=== PATIENT | male | born 1955 | race Caucasian/White ===

== ENCOUNTER → 2022-02-03 | Outpatient (CLI) | payer MEDICARE ==
--- NOTE | 2022-02-03 12:00 | XR ---
Right foot HISTORY: Trauma and pain 3 views of the right foot Bone mineralization, joint spaces and alignment are maintained. Soft tissue swelling is present. Late ral exam not optimally positioned and somewhat limited. Calcification present at the insertion of the Achilles tendon. IMPRESSION: No fracture or dislocation is evident with limitations as described, follow-up as indicat ed.
== END | disposition home or self-care (01) ==
LOC: RADXRYALE 09:52
PROVIDERS: ATTEND Family Medicine
DX: S90.31XA Contusion of right foot, initial encounter (principal); X58.XXXA Exposure to other specified factors, initial encounter

== ENCOUNTER → 2023-02-23 | Outpatient (CLI) | payer MEDICARE ==
--- NOTE | 2023-02-23 10:11 | XR ---
EXAMINATION TYPE: XR chest 2V DATE OF EXAM: 02/23/2023 COMPARISON: NONE TECHNIQUE: PA and lateral views submitted. HISTORY: Cough FINDINGS: The lungs are clear and there is no pneumothorax, pleural effusion, or focal pneumonia. Heart size normal and no overt failure. Osseous structures demonstrate hypertrophic and degenerative changes of the spine. A calcified granuloma right lung. Prominent pulmonary arteries can be associated with pulm onary arterial hypertension. Calcified lymph nodes noted in the hilum. Ectasia the aorta. AC joint ar thropathy. IMPRESSION: 1. No acute process. Chronic granulomatous disease.
== END | disposition home or self-care (01) ==
LOC: RADXRYALE 09:40
PROVIDERS: ATTEND Family Medicine
DX: J84.10 Pulmonary fibrosis, unspecified (principal); F17.210 Nicotine dependence, cigarettes, uncomplicated
CPT/HCPCS: 71046

== ENCOUNTER → 2023-03-17 | Outpatient (CLI) | payer MEDICARE ==
--- NOTE | 2023-03-17 09:58 | US ---
EXAMINATION TYPE: US Aorta Screening DATE OF EXAM: 03/17/2023 COMPARISON: NONE CLINICAL INDICATION: Male, 67 years old with history of F17.210 NICOTINE DEPENDENCE, CIGARETTES, UNCO MPLIC,I10; AAA screening TECHNIQUE: Multiple sonographic images of the abdominal aorta are obtained. 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 Mild ectasia of the abdominal aorta up to 2.7 cm.
== END | disposition home or self-care (01) ==
LOC: RADUSWWP 07:14
PROVIDERS: ATTEND Family Medicine
DX: Z13.6 Encounter for screening for cardiovascular disorders (principal); F17.210 Nicotine dependence, cigarettes, uncomplicated; I10 Essential (primary) hypertension; E11.65 Type 2 diabetes mellitus with hyperglycemia; I77.811 Abdominal aortic ectasia
CPT/HCPCS: 76706

== ENCOUNTER → 2023-03-17 | Outpatient (CLI) | payer MEDICARE ==
--- NOTE | 2023-03-17 09:12 | CTL ---
EXAMINATION TYPE: CT Low Dose Lung DATE OF EXAM ORDERED: 03/17/2023 COMPARISON: None HISTORY: . Low Dose CT Lung Screening CT DLP: 2.[address] CTDI: 99.10 mGy IV CONTRAST USED: None. SCREENING VISIT: First visit COMPARISON: None. TECHNIQUE: Low dose computed tomography scan was performed through the chest at 1 millimeter thick se ctions and reconstructed images in the coronal plane at [address] DIAGNOSTIC QUALITY: Satisfactory FINDINGS: LUNG NODULES: Calcified granuloma right lower lobe. No noncalcified nodules present. LUNGS: COPD: Severity: Mild Fibrosis: Severity:None Lymph nodes: None Other findings: None RIGHT PLEURAL SPACE: Effusion: None Calcification: None Thickening: None Pneumothorax: None LEFT PLEURAL SPACE: Effusion: None Calcification: None Thickening: None Pneumothorax: None HEART: Heart Size: Mildly enlarged Coronary calcification: Mild Pericardial effusion: None OTHER FINDINGS: Upper abdomen: Splenic granulomas noted. Bony thorax: Degenerative changes Supraclavicular region: No significant abnormalityOther: No significant abnormalityI Calcified hilar and mediastinal lymph nodes. IMPRESSION: Evidence of remote granulomatous disease. FOLLOW UP CT CHEST RECOMMENDATION: Follow-up screening in one year CT LUNG RAD: LUNG RAD CATEGORY 2 benign appearance and/or behavior
== END | disposition home or self-care (01) ==
LOC: RADCTMAIN 08:06
PROVIDERS: ATTEND Family Medicine
DX: Z12.2 Encounter for screening for malignant neoplasm of respiratory organs (principal); J98.4 Other disorders of lung; F17.210 Nicotine dependence, cigarettes, uncomplicated; R05.3 Chronic cough
CPT/HCPCS: 71271

== ENCOUNTER 2023-09-22 07:39 | Day surgery (SDC) | payer MEDICARE ==
[2023-09-18 15:57] VITALS: BMI 31.6
[2023-09-22] MEDS ORDERED: LIDOCAINE 1% (10MG/ML) FOR IV START INTRADERMA PRN (07:49)
[2023-09-22] MEDS: LACTATED RINGERS 1,000 ML IV SCH (08:17)
[2023-09-22] MEDS: IV FLUID CONTINUATION 1,000 ML IV ONE (08:18)
[2023-09-22 08:20] VITALS: TEMP 97.8
[2023-09-22 08:23] LABS: Glucose,Whole Blood 126 mg/dL (70-110)
[2023-09-22] MEDS ORDERED: PROPOFOL 10 MG/ML 20 ML VIAL IV ONE (08:42)
[2023-09-22] MEDS ORDERED: LIDOCAINE 1% INJ 10MG/ML (20 ML MDV) ONE (08:42)
--- NOTE | 2023-09-22 09:20 | P.PCN ---
Date of Procedure: 09/22/23 Procedure(s) Performed: Brief history: Patient is a pleasant 68-year-old white male scheduled for an elective upper endoscopy as well as colonoscopy as a part of evaluation of iron deficiency anemia and positive Cologuard. He denies any GI symptoms. Procedure performed: Esophagogastroduodenoscopy with biopsy Colonoscopy snare polypectomy and Endo Clip placement Preoperative diagnosis: Iron deficiency anemia Positive Cologuard Anesthesia: MAC Procedure: After informed consent was obtained from the patient was brought into the endoscopy unit and IV sedation was administered by anesthesia under continuous monitoring. Initially upper endoscopy was done. The Olympus GF 160 video endoscope was inserted inserted into the mouth and esophagus intubated without any difficulty and was gradually advanced into the stomach and duodenum and carefully examined. The bulb and second part of the duodenum appeared normal. Biopsies were done from the duodenum to rule out celiac disease. The scope was then withdrawn into the stomach adequately insufflated with air and upon careful examination the antrum had multiple scattered erosions consistent with gastritis and biopsies were done from this area. Mucosa of the body, cardia and fundus appeared normal. The scope was then withdrawn into the esophagus. The GE junction was located at 40 cm to the incisors. It appeared regular with no erythema erosions or ulcerations. Rest of the esophagus appeared normal. Patient tolerated the procedure well. At this time the patient continued to remain sedation. Initial digital rectal examination was normal. Olympus CF 160 video colonoscope was then inserted into the rectum and gradually advanced to the cecum without any difficulty. Careful examination was performed as the scope was gradually being withdrawn. The prep was excellent. The cecum, had a 5 mm cecal polyp status post cold snare po lypectomy. In the ascending colon there was a 4 cm broad-based polyp that was removed by piecemeal snare polypectomy and almost complete polypectomy was accomplished. Adjacent to this area there was a 2 cm linear polyp that was also removed by piecemeal snare polypectomy. Tattooing was performed with Bambi ink. Rest of the ascending colon, transverse colon, descending colon, sigmoid colon and rectum appeared normal. Retroflexion was performed in the rectum and no lesions were noted. Patient tolerated the procedure well. Impression: 1. Upper endoscopy revealed antral erosive gastritis but no evidence of esophagitis or peptic ulcer disease 2. Colonoscopy revealed: a) 5 mm cecal polyp status post cold snare polypectomy b) 2 cm linear polyp and a 4 cm broad-based polyp in the ascending colon s/p piecemeal snare polypectomy followed by Endo Clip placement and almost complete polypectomy accomplished Recommendations: Findings of this examination were discussed with the patient as well as his family. He was advised to follow-up with the biopsy results. He will be seen in the office in 2 weeks. The biopsy reveals adenoma, recommend repeat colonoscopy in 3 months to ensure complete polypectomy
[2023-09-22 09:25] VITALS: RESP 16
[2023-09-22 09:41] VITALS: BP 107/67; PULSE 80
== END 2023-09-22 10:01 | disposition home or self-care (01) ==
LOC: ORWHC2ENDO 07:39
PROVIDERS: ATTEND Internal Medicine Gastroenterology
DX: D12.2 Benign neoplasm of ascending colon (principal); D12.0 Benign neoplasm of cecum; D50.9 Iron deficiency anemia, unspecified; K29.60 Other gastritis without bleeding; I10 Essential (primary) hypertension; E78.5 Hyperlipidemia, unspecified; E11.9 Type 2 diabetes mellitus without complications; F41.9 Anxiety disorder, unspecified; H91.90 Unspecified hearing loss, unspecified ear; F17.200 Nicotine dependence, unspecified, uncomplicated; Z79.84 Long term (current) use of oral hypoglycemic drugs; Z79.899 Other long term (current) drug therapy
CPT/HCPCS: 88305; 45385; 43239; 44404; J2001; J2704

== ENCOUNTER → 2023-10-13 | Outpatient (CLI) | payer MEDICARE ==
[2023-10-13 08:08] LABS: African American GFR (CKD) 54 (>60 ml/min/1.73 sqM); Blood Urea Nitrogen 46 mg/dL (9-20); Non-African American GFR(CKD) 47 (>60 ml/min/1.73 sqM)
--- NOTE | 2023-10-13 11:05 | CT ---
EXAMINATION TYPE: CT abdomen pelvis w con CT DLP: 967.6 mGycm, Automated exposure control for dose reduction was used. DATE OF EXAM: 10/13/2023 9:15 AM COMPARISON: None. CLINICAL INDICATION:Male, 68 years old with history of R63.4 ABN WEIGHT LOSS; abn weight loss, ulcer TECHNIQUE: Axial CT abdomen pelvis w con;Sagittal and coronal reformats were created on a separate w orkstation. Contrast used:80 mL of Isovue 300 with IV Contrast, (none if empty) Oral contrast used: with Oral Contrast (none if empty) FINDINGS: LOWER CHEST: Unremarkable ABDOMEN LIVER: Multiple subcentimeter hypoattenuating structures are demonstrated throughout the liver, which are too small to accurately characterize but statistically likely to represent simple hepatic cysts. Scattered calcified granulomas. GALLBLADDER AND BILE DUCTS: Calcified gallstone near the gallbladder neck. PANCREAS: Unremarkable. SPLEEN: Scattered calcified granulomas. ADRENAL GLANDS: Unremarkable. KIDNEYS AND URETERS: Right renal mass superiorly measuring 6.3 x 5.6 x 5.3 cm which is minimally exop hytic. There is a indeterminate renal lesion more inferiorly and laterally measuring 56 until units a nd 17 mm. No evidence for suspicious left renal mass. No obstructive uropathy or renal calculus visua lized. No venous extension within the visualized. PELVIS BLADDER: Unremarkable REPRODUCTIVE: Prostate is enlarged in size measuring 5.7 cm in transverse dimension. ABDOMEN & PELVIS STOMACH AND BOWEL: No evidence of bowel obstruction. PERITONEUM/RETROPERITONEUM: No evidence of pneumoperitoneum or free fluid. VASCULATURE: Right common iliac artery aneurysm measuring up to 22 mm with mural thrombus. Scattered atherosclerosis throughout the remainder of the arterial vasculature. MUSCULOSKELETAL: No acute osseous abnormalities. Moderate disc degeneration changes are present throu ghout the thoracolumbar spine. Retrolisthesis of L5 on S1 with moderate to severe bilateral neural fo raminal stenosis. LYMPH NODES: enlarged right perirenal lymph node measuring up to 21 mm in short axis. SOFT TISSUE/ABDOMINAL WALL: Fat-containing umbilical hernia. IMPRESSION: 1. Right renal mass most compatible with renal cell carcinoma likely clear cell subtype with suspect ed metastatic disease to an adjacent lymph node. 2. Indeterminate right inferior lateral renal lesion measuring 17 mm. This can be further characteri zed with MRI renal mass protocol. 3. Prostatomegaly correlate with serum PSA. 4. Cholelithiasis with gallstone in the gallbladder lumen. 5. Right common iliac artery aneurysm measuring up to 22 mm with mural thrombus. A [place] level critical message alert has been initiated for Amita Wolfe MD via the [employer] Critical Results System on 10/13/2023 11:03 AM. This message alert has been sent to Amita Wolfe MD via the preferences provided by the clinician for the receipt of Radiology Critical Findings. Mess age ID [id number].
== END | disposition home or self-care (01) ==
LOC: RADCTMAIN 07:12
PROVIDERS: ATTEND Internal Medicine Gastroenterology
DX: N28.89 Other specified disorders of kidney and ureter (principal); K80.20 Calculus of gallbladder without cholecystitis without obstruction; N40.0 Benign prostatic hyperplasia without lower urinary tract symptoms; I72.3 Aneurysm of iliac artery; R63.4 Abnormal weight loss
CPT/HCPCS: 82565; 84520; 74177; 36415; Q9967

== ENCOUNTER → 2023-10-23 | Outpatient (CLI) | payer MEDICARE | END | disposition home or self-care (01) | LOC: RADCTMAIN 14:11 | PROVIDERS: ATTEND Urology | DX: Z53.9 Procedure and treatment not carried out, unspecified reason (principal) ==

== ENCOUNTER → 2023-10-28 | Outpatient (CLI) | payer MEDICARE ==
[2023-10-28 09:34] LABS: African American GFR (CKD) 43 (>60 ml/min/1.73 sqM); Blood Urea Nitrogen 45 mg/dL (9-20); Non-African American GFR(CKD) 37 (>60 ml/min/1.73 sqM)
--- NOTE | 2023-10-28 10:27 | CT ---
EXAMINATION TYPE: CT chest w con CT DLP: 375.7 mGycm, Automated exposure control for dose reduction was used. DATE OF EXAM: 10/28/2023 10:10 AM COMPARISON: CT low-dose lung at 03/17/2023, CT abdomen pelvis 10/13/2023. CLINICAL INDICATION:Male, 68 years old with history of C64.1 RENAL CA; PHH, renal ca TECHNIQUE: Multiple axial images were obtained through the chest following the administration of 100 cc of Isovue 300. . Coronal and sagittal reformats reviewed. FINDINGS: LUNGS/ PLEURA: No pleural effusion, pneumothorax, focal consolidation. Stable medial right upper lobe 4.8 mm pulmonary nodule (series 4, image 14). Stable 6 mm nodule along the right minor fissure (seri es 4, image 32). Likely intrafissural lymph node. Stable right lower lobe 1.2 cm calcified granuloma. No new or enlarging pulmonary nodules. AIRWAY: Patent and unremarkable.. HEART: Size within normal limits. No pericardial effusion. MEDIASTINUM: No enlarged lymph nodes greater than 1 cm short axis. Right hilar calcified lymph nodes. VASCULATURE: No thoracic aortic aneurysm. Mild atherosclerotic calcification of the aorta and its br anches. Mural thrombus identified along the descending thoracic aorta. Aneurysmal dilatation of the a jerson at the aortic hiatus measuring up to 3.7 cm again (series 3, image 62). Additional mural thrombu s identified within the visualized infrarenal abdominal aorta. MUSCULOSKELETAL: No acute osseous abnormalities. Mild multilevel degenerative disc disease. No aggres sive osseous lesion. SOFT TISSUES/LYMPH NODES: Unremarkable. LOWER NECK: No significant findings. UPPER ABDOMEN: Multiple calcified granulomas identified within the liver and spleen. Stable right hep atic lobe 1.2 cm cyst . Cholelithiasis. Increased size of partially visualized heterogenous enhancing right renal mass measuring 7.1 cm in AP dimension, previously 5.4 cm. Stable enlarged enhancing righ t pararenal lymph node measuring up to 2.0 cm. Similar thickening of the left adrenal gland. IMPRESSION: 1. Stable few pulmonary nodules from prior CT 03/17/2023. Attention on follow-up exam. No lymphadenop athy within the chest. 2. Increased size of partially visualized heterogenous enhancing right renal mass most consistent wit h renal cell carcinoma. 3. Stable enlarged right pararenal lymph node highly suspicious for metastasis. Similar nonspecific t hickening of the left adrenal gland. Cannot exclude metastasis. 4. Sequelae of prior granulomatous disease. 5. Similar aneurysmal dilatation of the aorta at the aortic hiatus measuring up to 3.7 cm. 6. Cholelithiasis.
[2023-10-28 11:03] LABS: ALT 32 U/L (4-49); AST 28 U/L (17-59); African American GFR (CKD) 46 (>60 ml/min/1.73 sqM); Albumin 3.2 g/dL (3.5-5.0); Albumin/Globulin Ratio 0.9; Alkaline Phosphatase 158 U/L (38-126); Anion Gap 7 mmol/L; Blood Urea Nitrogen 45 mg/dL (9-20); Carbon Dioxide 27 mmol/L (22-30); Chloride 100 mmol/L (98-107); Globulin 3.4 g/dL; Glucose 196 mg/dL (74-99); Non-African American GFR(CKD) 40 (>60 ml/min/1.73 sqM); Potassium 4.5 mmol/L (3.5-5.1); Sodium 134 mmol/L (137-145); Total Bilirubin 0.5 mg/dL (0.2-1.3); Total Protein 6.6 g/dL (6.3-8.2)
== END | disposition home or self-care (01) ==
LOC: RADCTMAIN 08:58
PROVIDERS: ATTEND Urology
DX: C64.1 Malignant neoplasm of right kidney, except renal pelvis (principal); N28.89 Other specified disorders of kidney and ureter; K80.20 Calculus of gallbladder without cholecystitis without obstruction; R59.9 Enlarged lymph nodes, unspecified; D71 Functional disorders of polymorphonuclear neutrophils; I71.9 Aortic aneurysm of unspecified site, without rupture
CPT/HCPCS: 80053; 82565; 84520; 71260; 36415; Q9967

== ENCOUNTER 2023-11-19 05:37 | Inpatient (IN) | payer MEDICARE ==
[2023-11-18 11:01] VITALS: BMI 30.4
--- NOTE | 2023-11-18 22:07 | P.GSHP ---
History of Present Illness H&P Date: 11/18/23 Chief Complaint: Right renal mass The patient is a 68-year-old white male who underwent evaluation of symptoms including fatigue, loss of appetite, and epigastric pain. CT scan of the abdomen and pelvis performed on October 13, 2023 showed a 6.3 x 5.6 x 5.3 cm right upper pole renal mass with a 21 mm lymph node posterior to the inferior vena cava. Patient has a long history of a pulmonary nodule on chest x-ray. CT scan of the chest performed October 28, 2023 showed stable pulmonary nodules, unchanged compared to CT scan in February 2023. The right renal mass measured 7.1 cm in maximal diameter on that scan. - Constitutional Constitutional: Reports fatigue, Reports weight loss - Gastrointestinal Gastrointestinal: Reports abdominal pain - Genitourinary (Female) Genitourinary: Denies dysuria, Denies hematuria Past Medical History Past Medical History: Cancer, Diabetes Mellitus, Hearing Disorder / Deafness, Hyperlipidemia, Hypertension Additional Past Medical History / Comment(s): Current right renal cancer. Spouse states since diagnosis patient cannot taste anything, having more pronounced fatigue, constipation, mid back pain after standing for only 7-10min - progressively getting worse, stumbbling at times, low blood pressure, calling PCP to discuss blood pressure and blood pressure medication. Wheezing sometimes, SOB with exertion, fatigue, low iron, recent 15lbs weight loss, loss of appetite, not eating much, difficulty swallowing, recent Cologuard positive, hard of hearing, brain fog, "stares off into space sometimes". History of Any Multi-Drug Resistant Organisms: None Reported Past Surgical History: No Surgical Hx Reported, Prostate Surgery Additional Past Surgical History / Comment(s): Colonoscopy with polypectomy, EGD. Past Anesthesia/Blood Transfusion Reactions: No Reported Reaction Additional Past Anesthesia/Blood Transfusion Reaction / Comment(s): Has never had Anesthesia. Smoking Status: Current every day smoker - Past Family History Mother Family Medical History: No Reported History Medications and Allergies Home Medications Medication Instructions Recorded Confirmed Type Atorvastatin [Lipitor] 40 mg PO DAILY 09/18/23 11/18/23 History Losartan/Hydrochlorothiazide 1 tab PO DAILY 09/18/23 11/18/23 History [Losartan-Hctz 100-25 mg Tab] metFORMIN HCL 500 mg PO BID 09/18/23 11/18/23 History Omeprazole 20 mg PO -BRKFST 11/18/23 11/18/23 History Allergies Allergy/AdvReac Type Severity Reaction Status Date / Time No Known Allergies Allergy Verified 11/18/23 10:49 Surgical - Exam - General well developed, well nourished, no distress - Neck no masses, trachea midline - Respiratory normal respiratory effort - Abdomen Abdomen: soft, non tender, no guarding, no rigid, no rebound - Genitourinary normal penis with no external lesions, testicles non-tender - Psychiatric oriented to time, oriented to person, oriented to place, speech is normal, memory intact Results - Imaging CT scan - abdomen: report reviewed, image reviewed Assessment and Plan (1) Neoplasm of uncertain behavior of right kidney Status: Acute Code(s): D41.01 - NEOPLASM OF UNCERTAIN BEHAVIOR OF RIGHT KIDNEY SNOMED Code(s): 261503201288619 Plan: Right radical nephrectomy with regional lymphadenectomy. The procedure has been reviewed in detail with the patient and his . They have been made aware of potential risks, which include anesthesia, bleeding, infection, bowel injury, hepatic injury, postoperative chylous ascites, postoperative paralytic ileus, and wound related complications.
[2023-11-19] MEDS: IV FLUID CONTINUATION 1,000 ML IV ONE ×3 (06:21)
[2023-11-19 06:47] LABS: Glucose,Whole Blood 195 mg/dL (70-110)
[2023-11-19] MEDS ORDERED: HYDROmorphone 0.5 MG/0.5 ML SYRINGE IVP PRN (07:00)
[2023-11-19] MEDS: DEXAMETHASONE SOD PHOSPHATE 4 MG/ML 1 ML VIAL IV ONE (07:03)
[2023-11-19] MEDS: ONDANSETRON 4 MG/2 ML VIAL IVP ONE (07:03)
[2023-11-19] MEDS: LACTATED RINGERS 1,000 ML IV SCH (07:04)
[2023-11-19 07:06] LABS: Anisocytosis Slight; Basophils # (A) 0.1 k/uL (0-0.2); Basophils % (A) 1 %; Eosinophils # (A) 0.1 k/uL (0-0.7); Eosinophils % (A) 1 %; HCT 27.3 % (39.0-53.0); HGB 8.6 gm/dL (13.0-17.5); Hypochromasia Moderate; Lymphocytes # (A) 1.5 k/uL (1.0-4.8); Lymphocytes % (A) 15 %; MCHC 31.7 g/dL (31.0-37.0); Mean Platelet Volume 8.5; Microcytosis Slight; Monocytes # (A) 0.8 k/uL (0-1.0); Monocytes % (A) 8 %; Neutrophils # (A) 7.4 k/uL (1.3-7.7); Neutrophils % (A) 74 %; Platelet Count 349 k/uL (150-450); RBC 3.45 m/uL (4.30-5.90); RDW 16.1 % (11.5-15.5)
[2023-11-19] MEDS: MIDAZOLAM 2 MG/2 ML VIAL IV ONE (07:13)
[2023-11-19 07:21] LABS: African American GFR (CKD) 45 (>60 ml/min/1.73 sqM); Anion Gap 9 mmol/L; Blood Urea Nitrogen 41 mg/dL (9-20); Calcium 10.1 mg/dL (8.4-10.2); Carbon Dioxide 27 mmol/L (22-30); Chloride 101 mmol/L (98-107); Glucose 170 mg/dL (74-99); Non-African American GFR(CKD) 39 (>60 ml/min/1.73 sqM); Potassium 4.2 mmol/L (3.5-5.1); Sodium 137 mmol/L (137-145)
[2023-11-19] MEDS ORDERED: SUCCINYLCHOLINE CHLORIDE 200 MG/10 ML VIAL IV ONE (07:45)
[2023-11-19] MEDS ORDERED: LIDOCAINE 1% INJ 10MG/ML (20 ML MDV) ONE (07:45)
[2023-11-19] MEDS ORDERED: fentaNYL (PF) 50 MCG/ML 2 ML AMP ONE (07:45)
[2023-11-19] MEDS ORDERED: PROPOFOL 10 MG/ML 20 ML VIAL IV ONE (07:45)
[2023-11-19] MEDS ORDERED: PHENYLEPHRINE 10 MG/ML VIAL ONE (07:45)
[2023-11-19] MEDS ORDERED: GLYCOPYRROLATE 0.2 MG/ML 2 ML VIAL ONE (07:45)
[2023-11-19] MEDS ORDERED: NEOSTIGMINE 1 MG/ML 10 ML VIAL ONE (07:45)
[2023-11-19] MEDS ORDERED: ROCURONIUM 10 MG/ML (5 ML VIAL) IV ONE (07:45)
[2023-11-19] MEDS: LACTATED RINGERS 1,000 ML IV ONE ×3 (08:51→10:04)
[2023-11-19] MEDS ORDERED: NALOXONE 0.4 MG/ML 1 ML VIAL IV PRN (09:39)
[2023-11-19 10:32] LABS: Glucose,Whole Blood 236 mg/dL (70-110)
[2023-11-19] MEDS: ROPIVACAINE 250 MG, HYDROMORPHONE (PF) 5 MG in SODIUM CHLORIDE 0.9% 200 ML EPIDURAL PRN (10:46)
[2023-11-19] MEDS: INSULIN ASPART (NovoLOG) 100 UNIT/ML VIAL SQ ONE (12:05)
--- NOTE | 2023-11-19 12:15 | P.ANPRN ---
Procedure Note - Anesthesia - Epidural/Spinal Epidural Continuous Time Out Performed: Yes Date of Procedure: 11/19/23 Procedure Start Time: 07:12 Procedure Stop Time: 07:18 Location of Patient: PreOp Indication: Acute Post-Operative Pain, Requested by Surgeon Sedation Type: Sedate with meaningful contact maintained Preparation: Sterile Dressing Position: Sitting Catheter: Indwelling Needle Guage: 18 Blood Aspirated: No Pain Paresthesia on Injection Noted: No Events: Uneventful and Well Tolerated (Xylocaine 1.5% plus epi 3 cc given as a test dose no adverse reaction noted)
[2023-11-19] MEDS: SODIUM CHLORIDE 0.9% 1,000 ML IV SCH (14:01)
[2023-11-19] MEDS: INSULIN REGULAR 100 UNIT/ML VIAL (IM/SQ) SQ ONE (14:01)
[2023-11-19] MEDS: NICOTINE 14MG/24HR PATCH TRANSDERM SCH (14:13)
--- NOTE | 2023-11-19 14:21 | P.OP ---
Date of Procedure: 11/19/23 Preoperative Diagnosis: Right renal mass Postoperative Diagnosis: Same Procedure(s) Performed: Right radical nephrectomy with regional lymphadenectomy, extensive lysis of adhesions Anesthesia: NISAA, janae Surgeon: Jhonny Beaver Paperboard Machine Operator #1: Christian Lockwodo Estimated Blood Loss (ml): 75 IV fluids (ml): 1,400 Pathology: other (Right kidney, retrocaval lymph node) Condition: stable Disposition: PACU Indications for Procedure: The patient is a 68-year-old white male who underwent evaluation of symptoms including fatigue, loss of appetite, and epigastric pain. CT scan of the abdomen and pelvis performed on October 13, 2023 showed a 6.3 x 5.6 x 5.3 cm right upper pole renal mass with a 21 mm lymph node posterior to the inferior vena cava. Patient has a long history of a pulmonary nodule on chest x-ray. CT scan of the chest performed October 28, 2023 showed stable pulmonary nodules, unchanged compared to CT scan in February 2023. The right renal mass measured 7.1 cm in maximal diameter on that scan. He now comes for right radical nephrectomy with regional lymphadenectomy. Operative Findings: Right upper pole renal mass. Large lymph node located posterior to the IVC, removed intact. Significant right upper quadrant adhesions. Description of Procedure: The patient was taken to the operating room and placed in the supine position. After being given general anesthesia, the abdomen was prepped and draped sterilely. A right-sided chevron incision was made using the scalpel. The Bovie electrocautery was used to incise the subcutaneous tissues and muscular layers of the abdominal wall down to the peritoneum. The peritoneum was then carefully entered, and opened the full length of the incision. The abdomen was examined, and extensive right upper quadrant adhesions were noted. Specifically, the omentum was adherent to the liver and the anterior abdominal wall. Ink was noted adjacent to the colon at the hepatic flexure. Dr. Zavala was consulted and stated that this was consistent with intracolonic tattooing performed at the time of colonoscopy. The adhesions were carefully lysed using a combination of sharp and blunt dissection. Once the adhesions were taken down, the peritoneum was incised at the line of Toldt, and a Светлана maneuver was performed. This exposed the right kidney and the inferior vena cava. Dissection was then performed alongside the lateral aspect of the inferior vena cava inferiorly. The tail of Gerota's fascia was dissected off of the posterior abdominal wall, and the ureter was ligated and divided. The Bookwalter r etractor was then placed for exposure. Lymphoadipose tissue was clipped and divided just lateral to the IVC up to the renal hilum. There was no evidence of adenopathy. The right renal artery was noted to bifurcate. The artery was ligated just proximal to the bifurcation using a 2-0 silk tie. The right renal vein, which had been isolated, was ligated proximally and distally. A 2-0 silk suture ligature was also placed proximally, and the vein was then divided. Dissection was performed between the IVC and the right renal artery to gain medial exposure and allow for the right renal artery to be ligated twice proximally using 2-0 silk ties. The artery was then divided. The remaining hilar lymph oh adipose tissue was clipped and divided. The remaining hilar tissues were clipped and divided at this time. Once the hilar dissection had been completed, blunt dissection was used to dissect the kidney, with Gerota's fascia intact, off of the posterior body wall. Remaining lateral attachments were divided at this time. The only remaining attachments were superior, and these attachments were clipped and divided. The vast majority of the adrenal gland was removed, though the adrenal gland extended extremely high and a portion of it was left. Once all attachments were divided, the specimen was removed. Attention was then paid to the retrocaval lymph node, which was just cephalad to the renal vessels. The inferior vena cava was dissected posteriorly and mobilized off of the retrocaval node. It was then possible to excise the node intact. Surrounding attachments were clipped and divided. No other enlarged lymph nodes were encountered. The surgical field was examined for hemostasis, which was very good with only very minimal oozing noted from the adrenal edge. After irrigating the wound with warm sterile water, Surgicel was applied over the adrenal bed. The Bookwalter retractor was removed. The abdominal contents were allowed to return to their normal location. Each individual muscle layer of the anterior abdominal wall was closed using #1 Vicryl suture in a running fashion. Hemostasis within the subcutaneous tissues was excellent. The skin was closed using jake. A sterile gauze dressing was applied over the incision. All sponge and needle counts were correct. The patient tolerated the procedure well was taken to the recovery room in stable condition.
[2023-11-19 16:11] LABS: Glucose,Whole Blood 182 mg/dL (70-110)
[2023-11-19] MEDS: ONDANSETRON 4 MG/2 ML VIAL IVP PRN (18:05)
[2023-11-19] MEDS: HEPARIN SODIUM,PORCINE 5,000 UNIT/ML 1 ML VIAL SQ SCH (20:10)
[2023-11-19 20:11] LABS: Glucose,Whole Blood 155 mg/dL (70-110)
[2023-11-20 06:14] LABS: Glucose,Whole Blood 121 mg/dL (70-110)
[2023-11-20] MEDS: PANTOPRAZOLE 40 MG TABLET PO SCH (06:38)
[2023-11-20] MEDS: ATORVASTATIN 40 MG TAB PO SCH (08:02)
[2023-11-20] MEDS: LOSARTAN-HCTZ 50-12.5 MG 1 EACH TAB PO SCH (08:02)
[2023-11-20 08:40] LABS: HCT 25.9 % (39.6-50.0); HGB 7.6 g/dL (13.0-17.0); MCH 25.2 pg (27.0-32.0); MCHC 29.3 g/dL (32.0-37.0); MCV 85.8 FL (80.0-97.0); Mean Platelet Volume 10.5 FL (9.5-12.2); NRBC Per 100 WBC 0 X 10*3/uL (0.00-0.01); Platelet Count 307 X 10*3/uL (140-440); RBC 3.02 X 10*6/uL (4.40-5.60); RDW 16.4 % (11.5-14.5)
[2023-11-20 08:41] LABS: Basophils # (A) 0.02 X 10*3/uL (0.00-0.10); Basophils % (A) 0.2 %; Eosinophils # (A) 0.03 X 10*3/uL (0.04-0.35); Eosinophils % (A) 0.3 %; Lymphocytes # (A) 1.95 X 10*3/uL (0.90-5.00); Lymphocytes % (A) 21.7 %; Monocytes # (A) 0.67 X 10*3/uL (0.20-1.00); Monocytes % (A) 7.4 %; Neutrophils % (A) 70.1 %
[2023-11-20 08:48] LABS: Calcium 9.2 mg/dL (8.7-10.3); Carbon Dioxide 26.4 mmol/L (21.6-31.8); Chloride 100 mmol/L (96-109); Glucose 104 mg/dL (70-110); Potassium 4.5 mmol/L (3.5-5.5); Sodium 139 mmol/L (135-145)
[2023-11-20] MEDS: diphenhydrAMINE ELIXIR 25 MG/10 ML CUP PO PRN (10:12)
[2023-11-20 11:35] LABS: Glucose,Whole Blood 141 mg/dL (70-110)
--- NOTE | 2023-11-20 11:47 | P.PN ---
Progress Note - Text Progress Note Date: 11/20/23 Postoperative day #1 status post radical nephrectomy epidural catheter placed for postoperative analgesia, patient doing well epidural site okay, patient currently on combination of epidural infusion solution of Ropivacaine 0.0625% and Dilaudid 20 g per mL the infusion rate at 7 ml per hour , patient had no motor deficit epidural site okay , vital signs stable ,VAS 0 /10 , Assessment and plan= post operative day #1 patient doing well ,pain well controlled , there is no anesthesia related complications
[2023-11-20] MEDS ORDERED: ZINC OXIDE PASTE (Z-GUARD) 1 APPLIC TOPICAL PRN (16:25)
[2023-11-20 16:59] LABS: Glucose,Whole Blood 152 mg/dL (70-110)
--- NOTE | 2023-11-20 18:05 | P.PN ---
Progress Note - Text Progress Note Date: 11/20/23 Underwent right open nephrectomy yesterday, is having nausea which is improving this morning. And incisional pain which is anticipated. Creatinine is 2.2, making adequate urine output. His abdomen is soft with tenderness along the incision -Continue Zofran for nausea -Will keep Teran and epidural in place for now
[2023-11-20 21:12] LABS: Glucose,Whole Blood 190 mg/dL (70-110)
[2023-11-21 06:19] LABS: Glucose,Whole Blood 131 mg/dL (70-110)
[2023-11-21 11:33] LABS: Glucose,Whole Blood 149 mg/dL (70-110)
--- NOTE | 2023-11-21 13:04 | P.PN ---
Subjective Progress Note Date: 11/21/23 the patient is in his second postoperative day from a right radical nephrectomy. He is doing well. His pain is under control. He is feeling well. His vital signs are stable urine output is good. Objective - Vital Signs Vital signs: Vital Signs Temp 98.8 F 11/21/23 06:56 Pulse 85 11/21/23 06:56 Resp 20 11/21/23 06:56 BP 102/61 11/21/23 06:56 Pulse Ox 96 11/21/23 08:59 FiO2 Intake & Output 11/20/23 11/21/23 11/21/23 18:59 06:59 18:59 Intake Total 185.267 Output Total 750 950 Balance -750 -877.753 Intake: Intake, IV Titration 185.267 Amount Ropivacaine 250 mg 185.267 Hydromorphone (Pf) 5 mg In Sodium Chloride 0.9% 200 ml @ Per Protocol EPIDURAL .Q0M PRN Rx#: [id number] Output: Urine 750 950 Other: Voiding Method Indwelling Catheter Indwelling Catheter - Genitourinary Genitourinary Comment(s): wound looks good without evidence of infection. - Labs CBC & Chem 7: 11/20/23 05:20 11/20/23 05:20 Labs: Abnormal Lab Results - Last 24 Hours (Table) 11/20/23 11/20/23 11/21/23 Range/Units 16:57 21:10 06:18 POC Glucose (mg/dL) 152 H 190 H 131 H (70-110) mg/dL 11/21/23 Range/Units 11:31 POC Glucose (mg/dL) 149 H (70-110) mg/dL Assessment and Plan Assessment: impression: Second day postoperative right radical nephrectomy. Recommendations: Discontinue epidural, discontinue Teran. Oral pain medicines. Ambulate.
[2023-11-21] MEDS: HYDROcodone/APAP 5-325MG 1 EACH TAB PO PRN (14:31)
[2023-11-21 16:40] LABS: Glucose,Whole Blood 159 mg/dL (70-110)
[2023-11-21 20:35] LABS: Glucose,Whole Blood 198 mg/dL (70-110)
[2023-11-22 05:59] LABS: Glucose,Whole Blood 112 mg/dL (70-110)
[2023-11-22 08:02] VITALS: BP 146/74; PULSE 74; RESP 20; TEMP 98.2
--- NOTE | 2023-11-22 11:22 | P.DS ---
Providers Date of admission: 11/19/23 05:37 Attending physician: Jhonny Beaver Primary care physician: Clara [facility] Hospital Course: the patient was admitted 11/19/23 for right radical nephrectomy. He underwent this without problems. He is recuperating nicely. He is now voiding, his pain is under control. He is eating a regular diet and ambulating. He is ready for discharge home. His wound is normal. There is no evidence of infection. He'll be discharged home on regular diet. He'll resume his home medications. He can follow in the office in one week for staple removal. He'll take Tylenol or Motrin for pain. The pathology report is pending. Patient Condition at Discharge: Good Plan - Discharge Summary Discharge Rx Participant: Yes New Discharge Prescriptions: No Action Atorvastatin [Lipitor] 40 mg PO DAILY RX: metFORMIN HCL 500 mg PO BID Losartan/Hydrochlorothiazide [Losartan-Hctz 100-25 mg Tab] 1 tab PO DAILY RX: Omeprazole 20 mg PO AC-BRKFST Discharge Medication List Atorvastatin [Lipitor] 40 mg PO DAILY 09/18/23 [History] Losartan/Hydrochlorothiazide [Losartan-Hctz 100-25 mg Tab] 1 tab PO DAILY 09/18/23 [History] RX: metFORMIN HCL 500 mg PO BID 09/18/23 [History] RX: Omeprazole 20 mg PO AC-BRKFST 11/18/23 [History] Follow up Appointment(s)/Referral(s): Jhonny Beaver MD [STAFF PHYSICIAN] - 1 Week Activity/Diet/Wound Care/Special Instructions: , may shower, Tylenol or Motrin for pain Discharge Disposition: HOME SELF-CARE
[2023-11-22 11:24] LABS: Glucose,Whole Blood 182 mg/dL (70-110)
--- NOTE | 2023-11-22 20:48 | P.PN ---
Progress Note - Text 11/21/23 1985 68-year-old male status post nephrectomy. Patient had an epidural catheter which was DC'd as per the surgeon's request. Patient seen and evaluated, doing well with his pain score of 4.
== END 2023-11-22 12:47 | disposition home or self-care (01) | DRG 661 ==
LOC: 2ORMAIN 05:37 → EDSTATUS 07:30 → 4SSUR 12:40
PROVIDERS: ADMIT Urology; ATTEND Urology
PROC: 0GT30ZZ Resection of Right Adrenal Gland, Open Approach (ICD-10-PCS; 2023-11-19)
PROC: 07BC0ZX Excision of Pelvis Lymphatic, Open Approach, Diagnostic (ICD-10-PCS; 2023-11-19)
PROC: 0TT00ZZ Resection of Right Kidney, Open Approach (ICD-10-PCS; principal; 2023-11-19 07:30)
DX: N28.89 Other specified disorders of kidney and ureter (principal); E11.9 Type 2 diabetes mellitus without complications; E78.5 Hyperlipidemia, unspecified; I10 Essential (primary) hypertension; H91.90 Unspecified hearing loss, unspecified ear; F17.210 Nicotine dependence, cigarettes, uncomplicated; Z79.899 Other long term (current) drug therapy; Z79.84 Long term (current) use of oral hypoglycemic drugs; Z87.19 Personal history of other diseases of the digestive system
CPT/HCPCS: 80048; 85025; 86850; 86900; 86901; 88305; 88307; 94760

== ENCOUNTER → 2024-06-24 | Outpatient (CLI) | payer MEDICARE ==
--- NOTE | 2024-06-24 14:26 | CT ---
EXAMINATION TYPE: CT abdomen pelvis wo con CT DLP: 881 mGycm, Automated exposure control for dose reduction was used. DATE OF EXAM: 06/24/2024 11:07 AM COMPARISON: CT chest 10/28/2023, CT abdomen and pelvis 10/13/2023. CLINICAL INDICATION:Male, 68 years old with history of C64.1 MALIGNANT NEOPLASM OF RIGHT KIDNEY, EXCE PT R; Malignant neoplasm of right kidney TECHNIQUE: Standard CT of the abdomen and pelvis following the administration of oral contrast. Cor onal and sagittal reformats were performed. FINDINGS: Evaluation is limited due to lack of intravenous contrast. LOWER CHEST: Partial visualization of a nodular opacity within the right lower lobe measuring at leas t 7 mm which corresponds to previously seen calcified granuloma. Additional small right lower lobe ca lcified granuloma. No new versus pulmonary nodules. Small aortic valvular calcifications. ABDOMEN LIVER: Scattered punctate calcified granulomas. GALLBLADDER AND BILE DUCTS: Cholelithiasis. No biliary ductal dilatation. PANCREAS: Unremarkable noncontrast appearance. SPLEEN: Scattered calcified granulomas. ADRENAL GLANDS: Similar nonspecific thickening of the left gland. Possibly hyperplasia. Right adrenal gland is surgically absent. KIDNEYS AND URETERS: Postsurgical changes right nephrectomy. No suspicious soft tissue within the ekaterina gical bed. No left hydronephrosis or renal calculi. PELVIS BLADDER: Unremarkable REPRODUCTIVE: Prostate is enlarged in size measuring 6.0 cm in transverse dimension. ABDOMEN & PELVIS STOMACH AND BOWEL: The stomach appears unremarkable. Stable 1.1 cm fat-containing lipoma within the t hird portion of the duodenum.No focal bowel wall thickening or surrounding inflammatory changes. Ente alanis contrast reaches the proximal transverse colon. The appendix is within normal limits. No evidence of bowel obstruction. PERITONEUM: No evidence of pneumoperitoneum or free fluid. VASCULATURE: Mild atherosclerotic calcifications are present throughout the abdominal aorta and its b ranches. Stable infrarenal abdominal aortic aneurysm measuring up to 3.1 cm. Stable fusiform aneurysm al dilatation of the right common iliac artery measuring up to 2.3 cm. MUSCULOSKELETAL: No acute osseous abnormalities. No aggressive osseous lesion. Mild retrolisthesis of L5 on S1. Mild multilevel degenerative disc disease. Degenerative changes of the pubic symphysis. LYMPH NODES: No gross evidence for lymphadenopathy. SOFT TISSUE/ABDOMINAL WALL: Small fat filled periumbilical hernia. IMPRESSION: 1. Postsurgical changes from right nephrectomy and adrenalectomy. No evidence for recurrence. 2. Sequelae of prior granulomatous disease. 3. Stable infrarenal abdominal aortic aneurysm measuring 3.1 cm. Stable right common iliac artery ane urysm measuring 2.3 cm. [facility], , 06/24/2024 2:24 PM
== END | disposition home or self-care (01) ==
LOC: RADCTMAIN 09:23
PROVIDERS: ATTEND Internal Medicine Hematology & Oncology
DX: C64.1 Malignant neoplasm of right kidney, except renal pelvis (principal); I72.3 Aneurysm of iliac artery; I71.43 Infrarenal abdominal aortic aneurysm, without rupture; I10 Essential (primary) hypertension; R63.4 Abnormal weight loss; E11.9 Type 2 diabetes mellitus without complications; Z90.5 Acquired absence of kidney; K42.9 Umbilical hernia without obstruction or gangrene; R91.1 Solitary pulmonary nodule; Z90.89 Acquired absence of other organs; Z71.3 Dietary counseling and surveillance
CPT/HCPCS: 74176

== ENCOUNTER → 2024-09-23 | Outpatient (CLI) | payer MEDICARE ==
--- NOTE | 2024-09-25 22:12 | CT ---
EXAMINATION TYPE: CT abdomen pelvis wo con DATE OF EXAM: 09/23/2024 COMPARISON: Prior CT June 24, 2024 CLINICAL INDICATION: Male, 69 years old with history of C64.1 R renal ca, HX OF RENAL CA. DIARRHEA, A BDOMINAL DISTENTION. R/O IMMUNOTHERAPY INDUCED ENTEROCOLITIS., TECHNIQUE: CT scan of the abdomen and pelvis is performed , patient injected with mL of ., (none if empty) Oral contrast used: without Oral Contrast (none if empty) CT DLP: 697.1 mGycm, Automated exposure control for dose reduction was used. FINDINGS: Within the limitations of a noncontrast study, the following observations are made. LUNG BASES: No significant abnormality is appreciated. LIVER/GB: Punctate calcifications throughout the liver are seen. Dependent gallstones are redemonstra rio PANCREAS: No significant abnormality is seen. SPLEEN: More prominent punctate calcifications throughout the spleen are present. Findings are consis tent for old granulomatous disease. ADRENALS: No significant abnormality is seen. KIDNEYS: Right kidney is surgically absent. BOWEL: Slightly suboptimal without enteric contrast. No abnormal small or large bowel dilatation. Mod erate wall thickening in the distal sigmoid colon into the rectum. Stable 1.1 cm duodenal lipoma roula nal image 35. PROSTATE/SEMINAL VESICLES: Enlarged prostate consistent with BPH is redemonstrated. LYMPH NODES: No greater than 1cm abdominal or pelvic lymph nodes are appreciated. OSSEOUS STRUCTURES: Grade 1 retrolisthesis L5 on S1. Moderate disc space narrowing and vacuum disc ph enomenon at this level redemonstrated OTHER: Mild to moderate moderate calcified plaque in ectatic abdominal aorta. The aorta measures up t o 3.0 cm in diameter. Right common iliac artery measures up to 2.2 cm in diameter axial image 88. A n arrow neck moderate-sized fat-containing periumbilical hernia is redemonstrated. IMPRESSION: Gkhkesea-[id number]-vrcmpy wall thickening in the distal sigmoid colon through the rectum. Findin g suggestive of focal colitis. [facility], , 09/25/2024 10:10 PM
== END | disposition home or self-care (01) ==
LOC: RADCTMAIN 08:54
PROVIDERS: ATTEND Internal Medicine Hematology & Oncology
DX: C64.1 Malignant neoplasm of right kidney, except renal pelvis (principal); J98.4 Other disorders of lung; R63.4 Abnormal weight loss; Z71.3 Dietary counseling and surveillance; K63.89 Other specified diseases of intestine
CPT/HCPCS: 74176